=== PATIENT | female | born 1960 ===

== ENCOUNTER 2024-03-28 13:58 | Outpatient (AMB) | payer MEDICARE, SELFPAY ==
--- NOTE | 2024-03-28 14:00 | MHC.OFFVIS ---
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 Accompanied by: Other Relationship Allergies carbamazepine [From TEGRETOL] Allergy (Mild, Verified 03/28/24 14:15) FALL DOWN aripiprazole [From ABILIFY] Allergy (Unknown, Verified 03/28/24 14:15) UNKNOWN lithium Allergy (Unknown, Verified 03/28/24 14:15) Unknown HPI HPI LOWER BACK AND THIGH PAIN: Details: Patient is a 63-year-old female with prior history chronic low back pain, L4-L5 fusion, chronic pain syndrome, chronic renal failure syndrome with CKD stage 3, bipolar affective disorder, fatigue, fibromyalgia, presents today for initial evaluation of low back pain with bilateral radiculopathy. She is accompanied by her who provides most of the history intake today. Patient prefers not to answer for majority of today's visit with anxious and blunted affect and has been expressing grunting vocalization at times which family attributes due to state of pain. Pain is localized to lower spine and easily aggraved with lumbar flexion, extension and bending. She also reports right hip pain without groin pain. Patient's reports patient underwent physical therapy and spine injections over 10 years ago through [facility] and [facility] Pain management clinic. Family reports cervical and lumbar spine x-rays and MRIs were completed at [facility] in the past 2-3 years. Unfortunately these reports are not available for review today. She has also tried acupuncture and currently taking Tylenol and gabapentin with minimal benefit. She has also tried oxycodone in the past which was effective per family. Patient denies any fever, chills, weight loss, abdominal or groin pain, bladder or bowel dysfunction, or saddle anesthesia. Location: Lower back radiates down bilateral thighs ; right hip Duration: Chronic pain for >25 years Characteristics of symptom or complaint: Aching, shooting, stabbing, tiring, exhausting, punishing Aggravating or associated factors: Any movements, prolonged walking, standing or sitting Relieving factors: Tylenol, gapabentin, lidocaine patches, heat/ice therapy Treatment: PT, acupuncture, h/o L4-L5 fusion [facility] Medical History (Updated 03/28/24 @ 14:40 by DUNG Maguire) Vertigo Renal mass, left Ovarian mass Intentional drug overdose Impaired fasting glucose Hypertension Hyperlipidemia Fibromyalgia Chronic renal failure syndrome Chronic lower back pain Chronic pain syndrome Chronic kidney disease, stage 3 Bipolar affective disorder Anemia Alopecia Surgical History (Updated 03/29/24 @ 15:21 by DUNG Maguire) History of lumbar fusion Review of Systems Const All systems reviewed & are unremarkable except as noted in HPI and below Physical Exam Vital Signs: Last Vital Signs Pulse 86 03/28/24 14:06 BP 104/63 03/28/24 14:06 Pulse Ox 97 03/28/24 14:06 Oxygen Delivery Method Room Air 03/28/24 14:06 BMI result Body Mass Index 22.3 General: Appears afebrile. No acute distress. Vocal grunting at times. Alert and oriented. Refuses to answer at times. Poor historian. Mood appropriate. Anxious and blunted affect. Follows and participates in conversation appropriately. Respiratory effort is unlabored. No cough. Able to transition from sit to stand unassisted. Ambulates with bilaterally normal heel strike and toe off. Slow, antalgic gait, ambulates without assistive devices. General: Yes no CVA tenderness Back/Spine/Pelvis Other: Limited lumbar ROM. Well healed scar in the lower midline spine. Lumbar extension and flexion exacerbates patient's pain. Demonstrates 5/5 strength of quadriceps bilaterally as well as flexion/dorsiflexion of bilateral feet against resistance. 2+ pedal pulses bilaterally. Seated straight leg rise with dorsiflexion positive bilaterally. +1 patellar and achilles reflexes bilaterally. Facet loading test positive bilaterally. Manuela sign, limited Loy?s and Stinchfield tests reproduce lateral hip and low back pain bilaterally. No groin pain with I/E hip rotations. TTP to right GTB. Back: no CVA tenderness Cervical Spine: cervical muscular tenderness, pain with cervical ROM and No Cervical spine tenderness Thoracic/Lumbar Spine: thoracic and lumbar spine normal to inspection, Thoracic/lumbar spine scar(s), Lasegue's sign positive bilateral and diffuse, pain with thoraco-lumbar ROM, paraspinal muscle tenderness, thoraco-lumbar ROM limited, No thoracic spinal tenderness and lumbar spinal tenderness (L3-S1) Pelvis: buttock tenderness bilaterally Sacroiliac joints: bilaterally tender to palpation Extrem General: Yes capillary refill normal, Yes no clubbing, cyanosis or edema, Yes no calf tenderness and Yes other (LLE varicosities) Psych Appearance: grossly normal Speech and movement: Slowed speech present (Psych), Pressured speech present and Slowed movement present (Neuro) Affect: Anxious affect present and Blunted affect present Attitude: cooperative and Refuses to answer (attititude/behavior) Thought process: Circumstantial thought process present Insight: Fair insight present (Psych) Judgement: Fair judgement present (Psych) Results Reviewed Results Reviewed: No imaging reports are available today. Assessment & Plan Assessment & Plan (1) Lumbar radiculopathy: Code(s): M54.16 - Radiculopathy, lumbar region Category: Medical (2) Chronic lower back pain: Code(s): M54.50 - Low back pain, unspecified; G89.29 - Other chronic pain Category: Medical (3) Lumbar post-laminectomy syndrome: Code(s): M96.1 - Postlaminectomy syndrome, not elsewhere classified Category: Medical (4) Lumbosacral spondylosis: Code(s): M47.817 - Spondylosis without myelopathy or radiculopathy, lumbosacral region Category: Medical (5) Right hip pain: Code(s): M25.551 - Pain in right hip Category: Medical (6) Sacroiliac joint pain: Code(s): M53.3 - Sacrococcygeal disorders, not elsewhere classified Category: Medical (7) Varicose veins of left lower extremity: Code(s): I83.92 - Asymptomatic varicose veins of left lower extremity Category: Medical Plan Discussed interventional treatment options for axial low back pain and post-laminectomy syndrome with patient and family. We will send request to [facility] and [facility] pain management for previous treatments, injections and imaging reports. Lumbar spine and hip with pelvic view imaging to assess degree of degenerative changes, any subluxation, listhesis, compression fractures or pars defects. Vascular referral per family request for left lower extremity varicose veins. All questions and concerns have been answered and patient and family agreed with the treatment plan. Follow-up for x-rays/old records review and sooner as needed. Orders: Orders XR lumbar spine 4V min 03/28/24 G89.29 - Other chronic pain, M47.817 - Spondylosis without myelopathy or radiculopathy, lumbosacral region, M54.16 - Radiculopathy, lumbar region, M54.50 - Low back pain, unspecified, M96.1 - Postlaminectomy syndrome, not elsewhere classified XR hip BI w [id number] 03/28/24 G89.29 - Other chronic pain, M25.551 - Pain in right hip, M53.3 - Sacrococcygeal disorders, not elsewhere classified, M54.50 - Low back pain, unspecified, M96.1 - Postlaminectomy syndrome, not elsewhere classified Referrals Vascular Surgery Referral I83.92 - Asymptomatic varicose veins of left lower extremity Coding Level of Care Code New Pt Level 4 (75396) Diagnoses Lumbar radiculopathy M54.16 Chronic lower back pain M54.50; G89.29 Lumbar post-laminectomy syndrome M96.1 Lumbosacral spondylosis M47.817 Right hip pain M25.551 Sacroiliac joint pain M53.3 Varicose veins of left lower extremity I83.92
[2024-03-28 14:06] VITALS: BP 104/63; PULSE 86; O2SAT 97; BMI 22.3
== END 2024-03-28 15:05 | disposition home or self-care (01) ==
PROVIDERS: PCP Internal Medicine; Referring Provider Internal Medicine; Visit Provider Nurse Practitioner Family
DX: M54.16 Radiculopathy, lumbar region (principal); M54.50 Low back pain, unspecified; G89.29 Other chronic pain; M96.1 Postlaminectomy syndrome, not elsewhere classified; M47.817 Spondylosis without myelopathy or radiculopathy, lumbosacral region; M25.551 Pain in right hip; M53.3 Sacrococcygeal disorders, not elsewhere classified; I83.92 Asymptomatic varicose veins of left lower extremity
CPT/HCPCS: 99204

== ENCOUNTER → 2024-03-28 13:58 | Outpatient (BNVA) | payer MEDICARE, SELFPAY | PROVIDERS: PCP Internal Medicine; Referring Provider Internal Medicine; Visit Provider Nurse Practitioner Family | DX: M54.16 Radiculopathy, lumbar region (principal); M54.50 Low back pain, unspecified; M96.1 Postlaminectomy syndrome, not elsewhere classified; M47.817 Spondylosis without myelopathy or radiculopathy, lumbosacral region; M25.551 Pain in right hip; M53.3 Sacrococcygeal disorders, not elsewhere classified; I83.92 Asymptomatic varicose veins of left lower extremity; G89.29 Other chronic pain | CPT/HCPCS: 99202 ==